=== PATIENT | female | born 2000 | race Caucasian/White ===

== ENCOUNTER 2023-03-31 22:29 | Emergency (ER) | payer OTHER ==
[2023-03-31 22:35] VITALS: BP 133/92; PULSE 102; RESP 16; TEMP 99; BMI 24.7
== END 2023-03-31 23:13 | disposition home or self-care (01) ==
LOC: FER 22:29
DX: R20.2 Paresthesia of skin (principal); F41.0 Panic disorder [episodic paroxysmal anxiety]; R00.2 Palpitations
CPT/HCPCS: 81025; 93005; 99283-25

== ENCOUNTER 2023-12-12 17:32 | Emergency (ER) | payer OTHER ==
[2023-12-12 17:38] VITALS: BP 128/84; PULSE 78; RESP 18; TEMP 98.2; BMI 26.5
[2023-12-12 19:12] LABS: BASO % 0.3 % (0-2.0); EOS % 0.2 % (0-4.5); HEMATOCRIT 38.1 % (32.4-45.2); HEMOGLOBIN 12.9 GM/dL (10.7-15.3); LYMPH % 17.8 % (8-40); MCH 31.5 pg (25.7-33.7); MCHC 33.8 g/dl (32.0-36.0); MEAN CELL VOLUME 93.2 fl (80-96); MEAN PLT VOLUME 8.8 fl (7.5-11.1); MONO % 7.9 % (3.8-10.2); NEUT % 73.8 % (42.8-82.8); PLATELET COUNT 285 10^3/uL (134-434); RBC 4.09 M/mm3 (3.60-5.2); RDW 14.3 % (11.6-15.6); WHITE BLOOD COUNT 6.3 K/mm3 (4.0-10.0)
[2023-12-12] MEDS ORDERED: ACETAMINOPHEN 500 MG TABLET (FP) ONE (19:16)
[2023-12-12] MEDS: SODIUM CHLORIDE 0.9% 500 ML INFUS.BAG IV ONE (19:21)
[2023-12-12] MEDS: ACETAMINOPHEN 500 MG TABLET (FP) PO ONE (19:21)
[2023-12-12 19:50] LABS: POTASSIUM 4.2 mmol/L (3.5-5.1)
[2023-12-12 19:52] LABS: CALCIUM 9.5 mg/dL (8.5-10.1)
[2023-12-12 19:53] LABS: ALBUMIN 3.9 g/dl (3.4-5.0)
[2023-12-12 19:56] LABS: CREATININE 0.7 mg/dL (0.55-1.3)
[2023-12-12 19:58] LABS: BILIRUBIN,TOTAL 0.3 mg/dL (0.2-1); TOT PROT 7.4 g/dl (6.4-8.2)
== END 2023-12-12 22:51 | disposition home or self-care (01) ==
LOC: JER 17:32
DX: O20.9 Hemorrhage in early pregnancy, unspecified (principal); Z33.2 Encounter for elective termination of pregnancy
CPT/HCPCS: 36415; 76817-TC; 80053; 84702; 85025; 86850; 86900; 86901; 99284-25